=== PATIENT | male | born 1935 | race Caucasian/White ===

== ENCOUNTER 2017-04-01 07:33 | Emergency (ER) | payer OTHER ==
[~2017-04-01] VITALS: Ht 188 cm; Wt 75.8 kg
[~2017-04-01 07:33] MED LIST: THIA50TA PO
[2017-04-01 08:27] LABS: HEMATOCRIT 37.4 % (39.2-51.8); HEMOGLOBIN 12.8 g/dL (13.7-18.0); WHITE BLOOD COUNT 5.3 x10^3/uL (3.4-10)
[2017-04-01 08:32] LABS: RAPID INFLUENZA A Negative (Negative); RAPID INFLUENZA B Negative (Negative)
[2017-04-01 08:36] LABS: BLOOD UREA NITROGEN 20 mg/dL (7-18)
[2017-04-01 08:41] LABS: ASPARTATE AMINO TRANSFERASE 12 U/L (15-37)
[2017-04-01 09:36] VITALS: BP 143/74
== END 2017-04-01 09:39 | disposition home or self-care (01) ==
LOC: ED 09:33
DX: J40 Bronchitis, not specified as acute or chronic (principal); M19.90 Unspecified osteoarthritis, unspecified site; Z85.89 Personal history of malignant neoplasm of other organs and systems
CPT/HCPCS: 36415; 71020; 80053; 83880; 85025; 87400; 99285

== ENCOUNTER 2017-04-06 10:07 | Emergency (ER) | payer OTHER ==
[~2017-04-06] VITALS: Ht 188 cm; Wt 75.3 kg
[2017-04-06 12:07] LABS: BLOOD UREA NITROGEN 20 mg/dL (7-18)
[2017-04-06 12:08] LABS: HEMATOCRIT 38.8 % (39.2-51.8); HEMOGLOBIN 13.4 g/dL (13.7-18.0); WHITE BLOOD COUNT 7.1 x10^3/uL (3.4-10)
[2017-04-06 13:12] VITALS: BP 142/70
== END 2017-04-06 13:14 | disposition home or self-care (01) ==
LOC: ED 10:45
DX: J20.9 Acute bronchitis, unspecified (principal)
CPT/HCPCS: 36415; 71020; 80048; 82040; 85025; 99285

== ENCOUNTER 2017-06-16 10:46 | Emergency (ER) | payer OTHER ==
[~2017-06-16] VITALS: Ht 188 cm; Wt 75.2 kg
[2017-06-16] MEDS ORDERED: ALBUTEROL/IPRATROPIUM 2.5MG/0.5MG, 3 ML NPPB ONE (11:30)
[2017-06-16] MEDS ORDERED: ALBUTEROL/IPRATROPIUM 2.5MG/0.5MG, 3 ML ONE (11:45)
[2017-06-16 12:03] LABS: RAPID INFLUENZA A Negative (Negative); RAPID INFLUENZA B Negative (Negative)
[2017-06-16 12:10] LABS: BASOPHILS % (AUTO) 0 % (0-1); EOSINOPHILS # (AUTO) 0.11 x10^3/uL (0-0.4); EOSINOPHILS % (AUTO) 2 % (1-7); LYMPHOCYTES # (AUTO) 0.52 x10^3/uL (1-3.4); LYMPHOCYTES % (AUTO) 8 % (22-44); MD NO; MEAN CORPUSCULAR HEMOGLOBIN 30.9 pg (27.5-34.5); MEAN CORPUSCULAR HGB CONC 33.6 g/dL (33.2-36.2); MEAN CORPUSCULAR VOLUME 91.9 fL (81-97); MEAN PLATELET VOLUME 7.6 fL (7.4-10.4); MONOCYTES # (AUTO) 1.01 x10^3/uL (0.2-0.8); MONOCYTES % (AUTO) 15 % (2-9); NEUTROPHILS # (AUTO) 5.03 x10^3/uL (1.8-6.8); NEUTROPHILS % (AUTO) 75 % (42-75); PLATELET COUNT 177 x10^3/uL (130-400); RED BLOOD COUNT 4.34 x10^6/uL (4.38-5.82)
[2017-06-16 12:18] LABS: ALBUMIN 3.3 g/dL (3.4-5.0); ANION GAP 8 mmol/L (5-15); CALCIUM 8.6 mg/dL (8.5-10.1); CHLORIDE 106 mmol/L (98-107)
[2017-06-16 12:24] LABS: ALANINE AMINOTRANSFERASE 17 U/L (12-78); ALKALINE PHOSPHATASE 71 U/L (45-117); BILIRUBIN,TOTAL 0.5 mg/dL (0.2-1.0); CREATININE 1.09 mg/dL (0.7-1.3); TOTAL PROTEIN 7.5 g/dL (6.4-8.2)
[2017-06-16 14:49] VITALS: BP 139/76
== END 2017-06-16 15:31 | disposition home or self-care (01) ==
LOC: ED 12:07
DX: B96.89 Other specified bacterial agents as the cause of diseases classified elsewhere (principal); J20.8 Acute bronchitis due to other specified organisms
CPT/HCPCS: 36415; 70450; 71045; 71275; 80053; 83880; 85025; 85379; 87400; 93005; 94640; 99285; J7620

== ENCOUNTER 2018-05-09 17:17 | Emergency (ER) | payer OTHER ==
[~2018-05-09] VITALS: Ht 188 cm; Wt 95.6 kg
[2018-05-09] MEDS ORDERED: ONDANSETRON ODT 4 MG ONE (17:47)
[2018-05-09] MEDS ORDERED: HYDROmorphone 2 MG/ML, 1ML ONE ×2 (17:48→19:09)
--- NOTE | 2018-05-09 17:52 | NUR ---
DILAUDID TO BE ADMINISTERED IM NOT IV PER MD, UNABLE TO CHANGE ORDER. MD GRAUSE CONFIMRED ROUTE AND DOSAGE 0.5MG IM
[2018-05-09] MEDS ORDERED: ONDANSETRON ODT 4 MG PO ONE (18:00)
[2018-05-09] MEDS ORDERED: HYDROmorphone 1 MG/ML, 1ML IVPush ONE (18:00)
--- NOTE | 2018-05-09 18:07 | NUR ---
PT DENIES NAUSEA, REF ZOFRAN AT THIS TIME
--- NOTE | 2018-05-09 19:27 | NUR ---
PT REPORTS SLIGHT RELIEF OF PAIN, BUT IT HAS SINCE RETURNED, PT UPDATED ON POC (CT, RECHECK), MD AWARE OF PAIN, PT MEDICATED PER EMAR
[2018-05-09] MEDS ORDERED: HYDROmorphone 2 MG/ML, 1ML IM PRN (19:30)
--- NOTE | 2018-05-09 19:54 | NUR ---
PT REPORTS DECREASED AND TOLERABLE LEVEL OF PAIN. CHART UP FOR RECHECK.
--- NOTE | 2018-05-09 20:23 | NUR ---
APPLIED LONG ARM SPLINT TO PATIENTS LEFT ARM, AND SLING. PER MD ORDER.
--- NOTE | 2018-05-09 20:43 | NUR ---
PT REPORTS CONTINUED PAIN RELIEF, SPLINT COMPLETED CHART UP FOR RECHECK.
[2018-05-09] MEDS ORDERED: OXYcodone/APAP 5/325MG TABLET PO ONE (21:00)
[2018-05-09] MEDS ORDERED: OXYcodone/APAP 5/325MG TABLET ONE (21:04)
--- NOTE | 2018-05-09 21:19 | NUR ---
RE-EVALUATION DONE. PATIENT DISCHARGED WITH PRESCRIPTION AND INSTRUCTION. VERBALIZED UNDERSTANDING.
[2018-05-09 21:20] VITALS: BP 148/82
== END 2018-05-09 21:22 | disposition home or self-care (01) ==
LOC: ED 18:22
DX: S53.432A Radial collateral ligament sprain of left elbow, initial encounter (principal); S53.442A Ulnar collateral ligament sprain of left elbow, initial encounter; X50.9XXA Other and unspecified overexertion or strenuous movements or postures, initial encounter; Y93.89 Activity, other specified; Y92.099 Unspecified place in other non-institutional residence as the place of occurrence of the external cause; Y99.8 Other external cause status
CPT/HCPCS: 29105; 73080; 73200; 96372; 96374; 99284; J1170

== ENCOUNTER 2020-10-15 07:17 | Emergency (ER) | payer MEDICARE ==
[~2020-10-15] VITALS: Ht 182.9 cm; Wt 72.6 kg
[~2020-10-15 07:17] MED LIST changes: +CEFD300C37 PO; +DOCU-131 PO; -THIA50TA PO; +THIA50TA4 PO; +[UNRECOGNIZED DRUG - REMARK] PO
[2020-10-15 07:19] VITALS: BP 187/90
--- NOTE | 2020-10-15 07:44 | NUR ---
6 DAYS AGO PT HAD A 2X4 DROP ON HIS FOOT. WAS SEEN BY PMD AND PLACED ON KEFLEX. PT HERE TODAY 2/2 SWELLING AND ERRYTHEMA AND COMPLAINT THAT THE INJURY IS NOT IMPROVING. MALACHI CLAY PA AT BEDSIDE, PT ASSESSMENT, POC DISCUSSED AND QUESTIONS ANSWERED. CALL LIGHT W/I REC. NAD NOTED.
[2020-10-15 08:00] LABS: BASOPHILS % (AUTO) 1 % (0-1); EOSINOPHILS % (AUTO) 5 % (1-7); LYMPHOCYTES % (AUTO) 13 % (22-44); MEAN CORPUSCULAR HGB CONC 34.1 g/dL (33.2-36.2); MEAN PLATELET VOLUME 7.3 fL (7.4-10.4); MONOCYTES % (AUTO) 10 % (2-9); NEUTROPHILS % (AUTO) 71 % (42-75); PLATELET COUNT 210 x10^3/uL (130-400); RED CELL DISTRIBUTION WIDTH 14.2 % (9.4-14.8)
[2020-10-15 08:12] LABS: ALBUMIN 3.2 g/dL (3.4-5.0); CALCIUM 8.9 mg/dL (8.5-10.1); CHLORIDE 106 mmol/L (98-107); CREATININE 0.97 mg/dL (0.7-1.3)
[2020-10-15 08:17] LABS: ANION GAP 4 mmol/L (5-15)
--- NOTE | 2020-10-15 09:02 | NUR ---
DR BEE AT BEDSIDE. TEST RESULTS REVIEWED, POC DISCUSSED.
--- NOTE | 2020-10-15 09:21 | NUR ---
Patient/Caregiver given discharge instructions and they have confirmed that they understand the instructions. Patient ambulatory with steady gait. NAD, all questions answered appropriately, denies additional needs at this time. No personal belongings left in room after discharge.
== END 2020-10-15 09:36 | disposition home or self-care (01) ==
LOC: ED 09:15
DX: S90.32XA Contusion of left foot, initial encounter (principal); L03.116 Cellulitis of left lower limb; M19.90 Unspecified osteoarthritis, unspecified site; X58.XXXA Exposure to other specified factors, initial encounter; Y93.89 Activity, other specified; Y92.89 Other specified places as the place of occurrence of the external cause; Y99.8 Other external cause status
CPT/HCPCS: 36415; 80048; 82040; 85025; 99284

== ENCOUNTER 2020-12-13 11:38 | Emergency (ER) | payer MEDICARE ==
[~2020-12-13] VITALS: Ht 189.2 cm; Wt 72.9 kg
[2020-12-13 11:41] VITALS: BP 127/66
--- NOTE | 2020-12-13 13:29 | NUR ---
PRODUCTION SORTER: PT SIGNED REQUEST FOR DISCHARGE FORM
== END 2020-12-13 13:32 | disposition left against medical advice (07) ==
LOC: ED 13:26
DX: J02.9 Acute pharyngitis, unspecified (principal); Z53.21 Procedure and treatment not carried out due to patient leaving prior to being seen by health care provider

== ENCOUNTER 2020-12-16 08:18 | Emergency (ER) | payer MEDICARE ==
[~2020-12-16] VITALS: Ht 188 cm; Wt 73.3 kg
--- NOTE | 2020-12-16 08:30 | NUR ---
PT REPORTS THAT HIS A/C CREATED A SORE THROAT THE DAY BEFORE YESTERDAY. PT DENIES PAIN AT THIS TIME. "IT'S CAUSED PROBLEMS" PT VOICE IS HOARSE. PT DOES NOT HAVE SOB. "I WENT FOR A TWO AND A HALF MILE WALK THIS MORNING" OUTSIDE, WHILE [place]'S AIR QUALITY IS VERY POOR DUE TO WILDFIRES. PT REPORTS WALKING ABOUT 4.5 MILES EVERY DAY.
--- NOTE | 2020-12-16 09:15 | NUR ---
PT TO CT
[2020-12-16 09:16] LABS: BASOPHILS % (AUTO) 0 % (0-1); EOSINOPHILS % (AUTO) 3 % (1-7); LYMPHOCYTES % (AUTO) 12 % (22-44); MEAN CORPUSCULAR HEMOGLOBIN 31.2 pg (27.5-34.5); MEAN CORPUSCULAR HGB CONC 33.8 g/dL (33.2-36.2); MEAN PLATELET VOLUME 7.2 fL (7.4-10.4); MONOCYTES % (AUTO) 12 % (2-9); NEUTROPHILS % (AUTO) 73 % (42-75); PLATELET COUNT 169 x10^3/uL (130-400); RED BLOOD COUNT 4.08 x10^6/uL (4.38-5.82); RED CELL DISTRIBUTION WIDTH 14.3 % (9.4-14.8)
[2020-12-16 09:22] LABS: ALBUMIN 3.2 g/dL (3.4-5.0); ANION GAP 4 mmol/L (5-15); CHLORIDE 105 mmol/L (98-107)
[2020-12-16] MEDS ORDERED: OMNIPAQUE 350 MG/ML, 75ML BOTTLE ONE (09:44)
[2020-12-16 10:41] VITALS: BP 178/80
== END 2020-12-16 10:45 | disposition home or self-care (01) ==
LOC: ED 08:39
DX: J04.0 Acute laryngitis (principal); R49.9 Unspecified voice and resonance disorder; M54.2 Cervicalgia
CPT/HCPCS: 36415; 70491; 80048; 82040; 85025; 99285; Q9967

== ENCOUNTER 2020-12-21 05:20 | Inpatient (IN) | payer MEDICARE ==
[~2020-12-21] VITALS: Ht 188 cm; Wt 73.9 kg
--- NOTE | 2020-12-21 05:39 | NUR ---
PT CAME INTO THE ED TODAY FOR A SORE THROAT, HOARSE VOICE AND PRODUCTIVE COUGH. HX OF THROAT POLYPS BEING REMOVED. PT STATES THIS HOARSENESS IS NEW. PT PLACED ON SPO2/BP/ECG MONITORING, PROVIDED WARM BLANKETS AND PILLOW FOR COMFORT. LAW DIXON AT FOR EVAL AND POC. WC Patient is resting comfortably in bed. Bed in lowest, rails engaged, call light on lap.
[2020-12-21] MEDS ORDERED: ENALAPRILAT 1.25 MG/ML, 1ML ONE (05:51)
[2020-12-21] MEDS ORDERED: ENALAPRILAT 1.25 MG/ML, 2ML IV ONE (06:00)
[2020-12-21 06:08] LABS: BASOPHILS % (AUTO) 1 % (0-1); EOSINOPHILS % (AUTO) 5 % (1-7); LYMPHOCYTES % (AUTO) 20 % (22-44); MEAN CORPUSCULAR HEMOGLOBIN 31.3 pg (27.5-34.5); MEAN CORPUSCULAR HGB CONC 33.8 g/dL (33.2-36.2); MEAN PLATELET VOLUME 7.1 fL (7.4-10.4); MONOCYTES % (AUTO) 12 % (2-9); NEUTROPHILS % (AUTO) 62 % (42-75); PLATELET COUNT 162 x10^3/uL (130-400); RED CELL DISTRIBUTION WIDTH 14.1 % (9.4-14.8)
[2020-12-21 06:20] LABS: CHLORIDE 104 mmol/L (98-107)
[2020-12-21 06:31] LABS: ALANINE AMINOTRANSFERASE 35 U/L (12-78); ALBUMIN 2.8 g/dL (3.4-5.0); ALKALINE PHOSPHATASE 62 U/L (45-117); ANION GAP 3 mmol/L (5-15); BILIRUBIN,TOTAL 0.3 mg/dL (0.2-1.0); CALCIUM 8.9 mg/dL (8.5-10.1); CREATININE 1.14 mg/dL (0.7-1.3); TOTAL PROTEIN 7.3 g/dL (6.4-8.2); TROPONIN I < 0.015 ng/mL (0.000-0.045)
--- NOTE | 2020-12-21 07:00 | NUR ---
BEDSIDE REPORT FROM TRINITY SEAY FOR TRANSFER OF PATIENT CARE.
--- NOTE | 2020-12-21 07:01 | NUR ---
report to ami armas, pt care transferred at this time
--- NOTE | 2020-12-21 07:07 | NUR ---
PATIENT LAYING IN GURNEY, BLANKET WARMER PROVIDED FOR COMFORT, NADN, VSS, CALL LIGHT WITHIN REACH.
--- NOTE | 2020-12-21 08:22 | NUR ---
PATIENT RESTING IN [facility], CONNECTED TO MONITOR, VSS, CALL LIGHT WITHIN REACH. PATIENT UP FOR RECHECK.
[2020-12-21] MEDS ORDERED: hydrALAzine 20 MG/ML, 1ML ONE (08:48)
--- NOTE | 2020-12-21 08:57 | NUR ---
PATIENT MEDICATED PER eMAR, CONNECTED TO MONITOR, PATIENT HTN, OTHER VSS, CALL LIGHT WITHIN REACH. PATIENT PROVIDED URINAL.
[2020-12-21] MEDS ORDERED: hydrALAzine 20 MG/ML, 1ML IV ONE (09:00)
--- NOTE | 2020-12-21 09:51 | NUR ---
CINTHIA SALMERON AT BEDSIDE FOR ADMISSION EVALUATION.
[2020-12-21] MEDS ORDERED: ENOXAPARIN 40 MG/0.4 ML ONE (10:18)
[2020-12-21] MEDS ORDERED: AMLODIPINE 5 MG TABLET ONE (10:18)
[2020-12-21] MEDS: ENOXAPARIN 40 MG/0.4 ML SQ SCH (10:26)
--- NOTE | 2020-12-21 10:29 | NUR ---
PATIENT MEDICATED PER eMAR, NADN, CONNECTED TO MONITOR, HTN, OTHER VSS, CALL LIGHT WITHIN REACH. LUNCH TRAY ORDERED. WAITING FOR BED ASSIGNTMENT UPSTAIRS.
[2020-12-21] MEDS ORDERED: GUAIFENESIN/DM 200-20MG, 10ML UDC PO PRN (10:30)
[2020-12-21] MEDS ORDERED: ENALAPRILAT 1.25 MG/ML, 2ML IVPush PRN (10:30)
[2020-12-21] MEDS ORDERED: AMLODIPINE 5 MG TABLET PO SCH (10:30)
[2020-12-21] MEDS ORDERED: ONDANSETRON 2MG/ML, 2ML IVPush PRN (10:30)
[2020-12-21] MEDS ORDERED: SODIUM CHLORIDE 0.9% 1,000 ML IV SCH (10:30)
[2020-12-21] MEDS ORDERED: POLYETHYLENE GLYCOL 17 GM PACKET PO PRN (10:30)
[2020-12-21] MEDS ORDERED: BISACODYL 10 MG SUPP PR PRN (10:30)
[2020-12-21] MEDS ORDERED: ONDANSETRON ODT 4 MG PO PRN (10:30)
[2020-12-21] MEDS: NYSTATIN 500,000 UNITS/5 ML UDC PO SCH ×3 (11:00→20:33)
--- NOTE | 2020-12-21 11:23 | NUR ---
LUNCH TRAY PROVIDED, CONNECTED TO MONITOR, BP LOWER AT 152/70, OTHER VSS, CALL LIGHT WITHIN REACH. WAITING FOR BED ASSIGNTMENT UPSTAIRS.
[2020-12-21] MEDS ORDERED: GUAIFENESIN/DM 200-20MG, 10ML UDC ONE (11:29)
--- NOTE | 2020-12-21 11:42 | NUR ---
PATIENT C/O COUGH, MEDICATED PER eMAR, MOVED ONTO HOSPITAL BED, CONNECTED TO MONITOR, VSS, CALL LIGHT WITHIN REACH. WAITING FOR BED ASSIGNMENT UPSTAIRS.
--- NOTE | 2020-12-21 13:00 | NUR ---
Note diana in EDM - 12/21/20 at 1329 by DIMITRI assumed care of pt. report from Loyda PETERSEN pt here for sore throat and cardiac evaluation. pt is currently sleeping on hospital bed. no apparent distress. IV fluids infusing. awaiting admission. pt has had lunch tray no apparent distress at this time
--- NOTE | 2020-12-21 13:00 | NUR ---
assumed care of pt. report from Loyda PETERSEN. pt here for OLIVERA and sore throat. was seen here previously for same. 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 pt is curently sleeping in position of comfort on hospital bed. IV fluids infusing. pt has had lunch tray awaiting admit orders with bed assignment
--- NOTE | 2020-12-21 13:35 | NUR ---
bed assignment has sean recieved. attempting to call report
[2020-12-21 14:22] VITALS: BP 167/79
[2020-12-21 14:59] VITALS: BP 177/72
[2020-12-21] MEDS: hydrALAzine 20 MG/ML, 1ML IVPush PRN (15:04)
[2020-12-21 15:51] VITALS: BP 113/64
[2020-12-21 20:28] VITALS: BP 120/66
[2020-12-21] MEDS: ACETAMINOPHEN 325 MG TABLET PO PRN (23:27)
[2020-12-22] VITALS (7 sets, daily range): BP systolic 125–170; BP diastolic 62–81
[2020-12-22] MEDS: hydrALAzine 20 MG/ML, 1ML IVPush PRN (02:16)
[2020-12-22] MEDS: NYSTATIN 500,000 UNITS/5 ML UDC PO SCH ×4 (05:22→20:04)
[2020-12-22] MEDS: ACETAMINOPHEN 325 MG TABLET PO PRN (06:33)
[2020-12-22] MEDS: SENNA/DOCUSATE TABLET PO SCH (07:58)
[2020-12-22] MEDS ORDERED: AMLODIPINE 5 MG TABLET PO SCH (09:00)
[2020-12-22] MEDS: ENOXAPARIN 40 MG/0.4 ML SQ SCH (10:37)
[2020-12-22] MEDS: LOSARTAN 50MG TABLET PO SCH (11:27)
[2020-12-22] MEDS ORDERED: LOSA50TA2 PO (14:25)
[2020-12-22] MEDS ORDERED: AMLO-150 PO ×2 (14:25)
[2020-12-22] MEDS ORDERED: NYST1000 PO (14:29)
[2020-12-22 19:20] LABS: TROPONIN I < 0.015 ng/mL (0.000-0.045)
[2020-12-22] MEDS ORDERED: KETOROLAC 30 MG/1 ML ONE (20:00)
[2020-12-22] MEDS: KETOROLAC 30 MG/1 ML IVPush PRN (20:04)
[2020-12-23 00:47] VITALS: BP 162/80
[2020-12-23] MEDS: NYSTATIN 500,000 UNITS/5 ML UDC PO SCH ×3 (05:31→15:40)
[2020-12-23 08:00] VITALS: BP 170/77
[2020-12-23] MEDS: SENNA/DOCUSATE TABLET PO SCH (08:27)
[2020-12-23] MEDS: LOSARTAN 50MG TABLET PO SCH (08:27)
[2020-12-23] MEDS: KETOROLAC 30 MG/1 ML IVPush PRN ×2 (08:30→12:44)
[2020-12-23] MEDS ORDERED: AMLODIPINE 5 MG TABLET PO SCH (09:00)
[2020-12-23] MEDS ORDERED: LOSARTAN 50MG TABLET PO SCH (09:30)
[2020-12-23] MEDS: ENOXAPARIN 40 MG/0.4 ML SQ SCH (10:23)
[2020-12-23 12:47] VITALS: BP 131/69
[2020-12-23] MEDS ORDERED: AMLO-150 PO (15:02)
== END 2020-12-23 16:49 | disposition home or self-care (01) | DRG 304 ==
LOC: ED 07:27 → EDIP 09:41 → 4EST 14:06 → OBSVTOIN 12-22 18:06
PROVIDERS: ADMIT Hospitalist; ATTEND Hospitalist
DX: I16.0 Hypertensive urgency (principal); E43 Unspecified severe protein-calorie malnutrition; E87.1 Hypo-osmolality and hyponatremia; B37.0 Candidal stomatitis; Z68.20 Body mass index [BMI] 20.0-20.9, adult; G93.89 Other specified disorders of brain; I10 Essential (primary) hypertension; K59.09 Other constipation; Z85.819 Personal history of malignant neoplasm of unspecified site of lip, oral cavity, and pharynx; Z85.89 Personal history of malignant neoplasm of other organs and systems
CPT/HCPCS: 36415; 70450; 71045; 80053; 84484; 85025; 87081; 87880; 93005; 93306; 96374; 96375; 99285; G0378; J1650; J1885; J0360; J7030